=== PATIENT | male | born 1970 | race Caucasian/White ===

== ENCOUNTER 2020-11-22 07:50 | Inpatient (IN) | payer OTHER, SELFPAY ==
[2020-11-22] VITALS (9 sets, daily range): BP systolic 110–145; BP diastolic 62–93; PULSE 78–94; RESP 16–18; TEMP 36.6–37.5; O2SAT 93–100; BMI 25.0
--- NOTE | 2020-11-22 07:53 | W.ED.EXTPRO ---
Documented by User: JONATHAN Aguirre 11/22/20 12:08 HPI - Extremity Problem General: Chief complaint: Extremity Problem,Nontraumatic Stated complaint: PAIN IN LEG Time Seen by Provider: 11/22/20 07:51 Source: patient Mode of arrival: ambulatory Limitations: no limitations History of Present Illness: HPI Narrative: Patient is a nice 50-year-old gentleman here for complaints of right lower extremity/calf redness and swelling that he is concerned could be a DVT. Patient is recently retired from the . He states he is normally very active. He has had no recent surgery. No previous history of DVT/PE. No periods of prolonged inactivity. No known hx of cancer. He tells me approximately week ago he began noticing some burning to his right calf that has progressed into redness, swelling, and worsening pain. Symptoms are worse with walking/ambulation. He is not having any chest pain or shortness of breath. No fevers. MD Complaint: extremity pain and extremity swelling Onset (ago): day(s) Pain Consistency: constant Location: right and lower extremity Quality: burning and aching Radiation: none Relieving factors: immobilization and elevation Exacerbating factors: walking Associated symptoms: Reports no associated symptoms; Deny chest pain, fever(s) or rash Review of Systems Const: Denies: fever(s), chills, body aches, fatigue or malaise Card: Reports: leg pain with exertion (R LE); Denies: chest pain, palpitations, irregular heart rhythm, edema, swelling of feet/ankles, lightheadedness, syncope, pre-syncope, dyspnea on exertion, orthopnea or acrocyanosis Resp: Denies: dyspnea, productive cough, non-productive cough, wheezing, pain on inspiration, hemoptysis or chest congestion GI: Denies: abdominal pain Musc: Reports: extremity pain (R LE) and extremity swelling (R LE); Denies: neck pain, back pain, joint pain or joint swelling Skin/Breast: Denies: rash Neuro: Denies: numbness in extremities, weakness in extremities or sensory changes PFSH ED PFSH: Social History Smoking and tobacco status: former smoker Alcohol intake: current Alcohol intake frequency: 0-2 Drinks per Day Physical Exam Const: COMMON NORMALS: no acute distress, average body habitus, patient oriented x3, no limitations, healthy appearing, alert and well nourished GENERAL APPEARANCE: cooperative ORIENTATION/CONSCIOUSNESS: Yes awake, Yes oriented to person, Yes oriented to place and Yes oriented to time Resp: COMMON NORMALS: normal respiratory effort and clear to auscultation bilaterally AUSCULTATION: clear to auscultation bilaterally Cardio: COMMON NORMALS: regular rate and regular rhythm RATE: regular rate RHYTHM: regular rhythm Extremity: COMMON NORMALS: full ROM, capillary refill normal, no joint enlargement, no clubbing, cyanosis or edema and no pedal edema GENERAL: Yes calf tenderness (right; negative Best's) OTHER: swelling, redness, and tenderness to R calf; no palpable cord; DP/PT pulses intact; sensory normal Neuro: COMMON NORMALS: patient oriented x3, moves all extremities, no focal motor deficits, no sensory deficits noted and gait normal SENSORIUM/ORIENTATION: Yes alert, Yes oriented to person, Yes oriented to place and Yes oriented to time Skin: COMMON NORMALS: no rashes or lesions noted GENERAL SKIN EXAM: no rashes or lesions noted TRAUMA: no lacerations or abrasions Course Vital Signs: Vital signs: Vital Signs Pulse Rate 88 11/22/20 11:56 Respiratory Rate 18 11/22/20 11:56 Blood Pressure 122/91 11/22/20 11:56 Pulse Oximetry 99 11/22/20 11:56 MDM - Extremity (Nontraumatic) MDM Narrative: Medical decision making narrative: Due to extensiveness and proximal location of patient's right lower extremity DVT, decision was made to obtain CTA imaging even though patient did not complain of chest pain or shortness of breath. CTA does show bilateral PEs. He was initially given Lovenox. Heparin ordered after results of CTA and after consulting with Dr. Heaton. His vital signs are stable. At this point Dr. Heaton feels he most likely would benefit from coming inpatient as this patient has no risk factors for embolisms. He will evaluate/assess patient and speak to hospitalist for admission. Lab Data: Labs: Lab Results 11/22/20 11/22/20 11/22/20 Range/Units 08:10 08:10 08:10 WBC 8.0 (4.0-10.0) 10^3/ uL RBC 4.63 (4.1-5.3) 10^6/u L Hgb 14.2 (11.7-16.6) g/dL Hct 41.4 L (42.0-52.0) % MCV 89.4 (80-94) fL MCH 30.7 (28.0-34.0) pg MCHC 34.3 (30.0-36.0) g/dL RDW 12.0 L (12.1-15.1) % Plt Count 174 (130-400) 10^3/c mm MPV 9.6 (7.4-10.4) fL Neut % (Auto) 68.5 % Lymph % (Auto) 15.8 % Tyler % (Auto) 9.8 % Eos % (Auto) 4.4 % Baso % (Auto) 1.1 % Neut # (Auto) 5.47 (1.8-7.7) 10^3/u L Lymph # (Auto) 1.3 (0.8-4.8) 10^3/u L Tyler # (Auto) 0.8 (0.2-0.9) 10^3/u L Eos # (Auto) 0.4 (0.0-0.8) 10^3/u L Baso # (Auto) 0.1 (0.0-0.1) 10^3/u L Nucleated RBC % (a uto) 0 % Nucleated RBCs # 0.0 /100WBC PT 13.20 (12.1-14.9) SECO NDS INR 0.97 (0.8-1.2) APTT 25.5 (23.9-36.7) SECO NDS Sodium 138 (136-145) mmol/L Potassium 4.4 (3.5-5.1) mmol/L Chloride 101 (98-107) mmol/L Carbon Dioxide 25 (22-29) mmol/L Anion Gap 16.4 (5-19) BUN 18 (6-20) mg/dL Creatinine 0.9 (0.7-1.2) mg/dL GFR Calculation 89.7 L (90-130) mL/min Glucose 91 (65-115) mg/dL Calculated Osmolal ity 287 (285-295) mOsm/k g Calcium 8.5 (8.5-10.5) mg/dL Total Bilirubin 0.7 (0.15-1.2) mg/dL AST 23 (0-40) U/L ALT 23 (0-41) U/L Alkaline Phosphata se 63 (40-130) IU/L Total Protein 7.3 (6.6-8.7) g/dL Albumin 4.1 (3.5-5.2) g/dL Globulin 3.2 (1.3-4.6) g/dL Imaging Data^: CTA Chest: Radiologist's impression: [address] [address] [address] Scan Report Signed Patient: Arthur Wu Unit #: [id number] : 1970 Age/Sex: 50 / M ADM Date: 11/22/20 Loc: ER Room/Bed: Attending Dr: Ordering Provider/Ordering MD: Estephania Pierre Date of Service: 11/22/20 Procedure(s): CT angio chest PE protcl [id number] Accession Number(s): [id number] Report Number: [id number] WS: [id number] CTA OF THE CHEST WITH PULMONARY EMBOLISM PROTOCOL TECHNIQUE: High-resolution contrast enhanced CTA of the chest with coronal and sagittal reformatted images with pulmonary embolism protocol. MIP images are also reviewed. CLINICAL INFORMATION: extensive unprovoked/proximal R LE DVT COMPARISON: None. DLP: [address] scans at [facility] use at least one of these dose optimization techniques: automated exposure control; mA and/or kV adjustment per patient size (includes targeted exams where dose is matched to clinical indication); or iterative reconstruction. FINDINGS: Proximal main pulmonary arteries are normal. Numerous filling defects in the segmental and subsegmental pulmonary arteries bilaterally. This is worse in the bilateral lower lobes. Findings compatible with acute pulmonary embolus. Normal caliber thoracic aorta. No mediastinal or hilar lymphadenopathy. No axillary lymphadenopathy. Adrenal glands are normal. Normal GE junction. Hazy groundglass nodule left lower lobe measuring 5 mm. Additional similar-appearing hazy groundglass nodules in the right lower lobe and right upper lobe largest measuring 5 mm. Recommend 3 month follow-up. CT/CT angio chest PE protcl [id number] IMPRESSION: 1. Bilateral filling defects in the proximal segmental pulmonary arteries extending to the subsegmental pulmonary arteries bilaterally worse in the lower lobes compatible with acute pulmonary embolus. 2. Normal caliber thoracic aorta. 3. No acute pulmonary infiltrates. 4. 3 small nonspecific groundglass opacities the largest measuring 5 mm. These are located in the left lower lobe, right upper lobe, and right lower lobe. Recommend 3 month follow-up. 5. No mediastinal or hilar lymphadenopathy. Notified JONATHAN Aguirre at 11/22/2020 9:44 AM. Dictated By: Deniz Matt MD Signed By: Deniz Matt MD Signed Date/Time: 11/22/20951 DD/ 2 US venous R LE: My impression: Per Nika Timeet tech-extensive DVT noted to femoral vein all the way down extremity Discharge Plan Discharge Patient Disposition: Admitted As Inpatient Clinical Impression: Bilateral pulmonary embolism Acute deep vein thrombosis (DVT) of right lower extremity Qualifiers: Affected thrombotic vein of extremity: unspecified vein of extremity Qualified Code(s): I82.401 - Acute embolism and thrombosis of unspecified deep veins of right lower extremity Condition: Stable Coding Level of Care Code ED Firebrick Layer for Chg Fwd Exam Comprehensive Documented by User: Eduardo Heaton DO 11/22/20 11:38 HPI - Extremity Problem General: Chief complaint: Extremity Problem,Nontraumatic Stated complaint: PAIN IN LEG Time Seen by Provider: 11/22/20 07:51 History of Present Illness: HPI Narrative: 50-year-old male initially seen by the PA found to have an extensive DVT as well as significant pulmonary emboli load. He has not no precipitating cause in discussing with him though he mentions that his sisters had several clots throughout the years but he does not know what particular diagnosis she was given. He states he noticed last week after he had been in class for a few hours his leg was uncomfortable and then over the next few days he began to have increasing swelling and pain. MD Complaint: extremity pain and extremity swelling Onset (ago): day(s) Pain Consistency: constant Location: right and lower extremity Quality: aching Radiation: distal Relieving factors: nothing Exacerbating factors: walking, exertion and palpation Associated symptoms: Deny arthralgias, chest pain, fever(s), myalgias, rash or short of breath Review of Systems Const: Denies: fever(s) ENMT: Denies: throat pain, ear or mastoid pain, nasal discharge or nasal congestion Card: Denies: chest pain Resp: Denies: dyspnea, productive cough or non-productive cough GI: Denies: abdominal pain, nausea, vomiting, hematemesis, coffee ground emesis, diarrhea, constipation, bloating, hematochezia or melena : Denies: flank pain, dysuria, urinary frequency or urinary urgency Skin/Breast: Denies: rash PFSH ED PFSH: Social History Smoking and tobacco status: former smoker Alcohol intake: current Alcohol intake frequency: 0-2 Drinks per Day Physical Exam Const: COMMON NORMALS: no acute distress GENERAL APPEARANCE: cooperative and comfortable ORIENTATION/CONSCIOUSNESS: Yes awake, Yes oriented to person, Yes oriented to place and Yes oriented to time HENMT: COMMON NORMALS: normocephalic, atraumatic and hearing grossly normal bilaterally HEAD & SCALP: normocephalic and atraumatic Neck/C-Spine: COMMON NORMALS: no JVD Resp: COMMON NORMALS: normal respiratory effort, No retractions, No use of accessory muscles and clear to auscultation bilaterally AUSCULTATION: clear to auscultation bilaterally Cardio: COMMON NORMALS: no JVD, regular rate, regular rhythm and No murmurs present (Cardio) RATE: regular rate RHYTHM: regular rhythm GI: COMMON NORMALS: Soft to palpation and No hepatosplenomegaly present AUSCULTATION: Yes normoactive bowel sounds PALPATION: Yes Soft to palpation, No Tenderness to palpation present (GI), No Guarding due to palpation present (GI) and Yes No hepatosplenomegaly present Extremity: COMMON NORMALS: normal to inspection, capillary refill normal, no clubbing, cyanosis or edema, no calf tenderness and no pedal edema Neuro: SENSORIUM/ORIENTATION: Yes oriented to person, Yes oriented to place and Yes oriented to time Skin: COMMON NORMALS: no rashes or lesions noted GENERAL SKIN EXAM: no rashes or lesions noted Course Vital Signs: Vital signs: Vital Signs Pulse Rate 88 11/22/20 11:56 Respiratory Rate 18 11/22/20 11:56 Blood Pressure 122/91 11/22/20 11:56 Pulse Oximetry 99 11/22/20 11:56 MDM - Extremity (Nontraumatic) Lab Data: Labs: Lab Results 11/22/20 11/22/20 11/22/20 Range/Units 08:10 08:10 08:10 WBC 8.0 (4.0-10.0) 10^3/ uL RBC 4.63 (4.1-5.3) 10^6/u L Hgb 14.2 (11.7-16.6) g/dL Hct 41.4 L (42.0-52.0) % MCV 89.4 (80-94) fL MCH 30.7 (28.0-34.0) pg MCHC 34.3 (30.0-36.0) g/dL RDW 12.0 L (12.1-15.1) % Plt Count 174 (130-400) 10^3/c mm MPV 9.6 (7.4-10.4) fL Neut % (Auto) 68.5 % Lymph % (Auto) 15.8 % Tyler % (Auto) 9.8 % Eos % (Auto) 4.4 % Baso % (Auto) 1.1 % Neut # (Auto) 5.47 (1.8-7.7) 10^3/u L Lymph # (Auto) 1.3 (0.8-4.8) 10^3/u L Tyler # (Auto) 0.8 (0.2-0.9) 10^3/u L Eos # (Auto) 0.4 (0.0-0.8) 10^3/u L Baso # (Auto) 0.1 (0.0-0.1) 10^3/u L Nucleated RBC % (a uto) 0 % Nucleated RBCs # 0.0 /100WBC PT 13.20 (12.1-14.9) SECO NDS INR 0.97 (0.8-1.2) APTT 25.5 (23.9-36.7) SECO NDS Sodium 138 (136-145) mmol/L Potassium 4.4 (3.5-5.1) mmol/L Chloride 101 (98-107) mmol/L Carbon Dioxide 25 (22-29) mmol/L Anion Gap 16.4 (5-19) BUN 18 (6-20) mg/dL Creatinine 0.9 (0.7-1.2) mg/dL GFR Calculation 89.7 L (90-130) mL/min Glucose 91 (65-115) mg/dL Calculated Osmolal ity 287 (285-295) mOsm/k g Calcium 8.5 (8.5-10.5) mg/dL Total Bilirubin 0.7 (0.15-1.2) mg/dL AST 23 (0-40) U/L ALT 23 (0-41) U/L Alkaline Phosphata se 63 (40-130) IU/L Total Protein 7.3 (6.6-8.7) g/dL Albumin 4.1 (3.5-5.2) g/dL Globulin 3.2 (1.3-4.6) g/dL Discharge Plan Discharge Patient Disposition: Admitted As Inpatient Clinical Impression: Bilateral pulmonary embolism Acute deep vein thrombosis (DVT) of right lower extremity Qualifiers: Affected thrombotic vein of extremity: unspecified vein of extremity Qualified Code(s): I82.401 - Acute embolism and thrombosis of unspecified deep veins of right lower extremity Condition: Stable Coding Level of Care Code ED Firebrick Layer for Severino Fwd Exam Comprehensive
--- NOTE | 2020-11-22 08:01 | USCV_ITS ---
Bryce Arthur Age: 50 Gender: M : 1970 Exam Date: 11/22/2020 08:13 Ordering Phys: Estephania No Technologist: ANA ROSA GARCIA Exam Location: [facility] [place] Indication: TENDER RT CALF HISTORY: Tender calf PROCEDURES: Venous duplex imaging was performed in only the right lower extremity. Left common femoral vein also examined. Serial compression, augmentation maneuvers, and spectral Doppler flow evaluation were performed. The following venous structures were evaluated: common femoral vein, profunda vein, proximal portion of the greater saphenous vein, superficial femoral vein, and the popliteal vein. In addition, in addition, the posterior tibial and peroneal trunk and atv were evaluated. FINDINGS: Rt CFV at prox thru Rt Pop thru Rt. Peroneal and Rt. ATV thru Rt PTV. CONCLUSIONS DVT right common femoral vein extends into popliteal vein. DVT extends into right peroneal , PTV, ATV. ESTEPHANIA NO NOTIFIED WITH PRELIM AT TIME OF EXAM Deniz Matt MD (Electronically Signed) Final Date: 22 Nov 2020 12:25 S
[2020-11-22 08:19] LABS: Basophils # 0.1 10^3/uL (0.0-0.1); Basophils % 1.1 %; Eosinophils # 0.4 10^3/uL (0.0-0.8); Eosinophils % 4.4 %; Hematocrit 41.4 % (42.0-52.0); Hemoglobin 14.2 g/dL (11.7-16.6); Lymphocytes # 1.3 10^3/uL (0.8-4.8); Lymphocytes % 15.8 %; Mean Corpuscular HGB Conc 34.3 g/dL (30.0-36.0); Mean Corpuscular Hemoglobin 30.7 pg (28.0-34.0); Mean Corpuscular Volume 89.4 fL (80-94); Mean Platelet Volume 9.6 fL (7.4-10.4); Monocytes # 0.8 10^3/uL (0.2-0.9); Monocytes % 9.8 %; Neutrophils # 5.47 10^3/uL (1.8-7.7); Neutrophils % 68.5 %; Nucleated Red Blood Cells % 0 %; Platelet Count 174 10^3/cmm (130-400); Red Blood Count 4.63 10^6/uL (4.1-5.3)
[2020-11-22 08:35] LABS: INR 0.97 (0.8-1.2)
[2020-11-22 08:36] LABS: Partial Thromboplastin Time 25.5 SECONDS (23.9-36.7)
[2020-11-22 08:38] LABS: Alanine Aminotransferase 23 U/L (0-41); Albumin Level 4.1 g/dL (3.5-5.2); Alkaline Phosphatase 63 IU/L (40-130); Anion Gap 16.4 (5-19); Aspartate Amino Transferase 23 U/L (0-40); Blood Urea Nitrogen 18 mg/dL (6-20); Calcium 8.5 mg/dL (8.5-10.5); Carbon Dioxide 25 mmol/L (22-29); Chloride 101 mmol/L (98-107); Globulin 3.2 g/dL (1.3-4.6); Glomerular Filtration Rate 89.7 mL/min (90-130); Glucose 91 mg/dL (65-115); Osmolality Calculated 287 mOsm/kg (285-295); Potassium 4.4 mmol/L (3.5-5.1); Sodium 138 mmol/L (136-145); Total Bilirubin 0.7 mg/dL (0.15-1.2); Total Protein 7.3 g/dL (6.6-8.7)
--- NOTE | 2020-11-22 08:42 | CT_ITS ---
WS: [id number] CTA OF THE CHEST WITH PULMONARY EMBOLISM PROTOCOL TECHNIQUE: High-resolution contrast enhanced CTA of the chest with coronal and sagittal reformatted i mages with pulmonary embolism protocol. MIP images are also reviewed. CLINICAL INFORMATION: extensive unprovoked/proximal R LE DVT COMPARISON: None. DLP: [address] scans at [facility] use at least one of these dose optimization techniques: automat ed exposure control; mA and/or kV adjustment per patient size (includes targeted exams where dose is matched to clinical indication); or iterative reconstruction. FINDINGS: Proximal main pulmonary arteries are normal. Numerous filling defects in the segmental and subsegment al pulmonary arteries bilaterally. This is worse in the bilateral lower lobes. Findings compatible wi th acute pulmonary embolus. Normal caliber thoracic aorta. No mediastinal or hilar lymphadenopathy. No axillary lymphadenopathy. Adrenal glands are normal. Normal GE junction. Hazy groundglass nodule left lower lobe measuring 5 mm . Additional similar-appearing hazy groundglass nodules in the right lower lobe and right upper lobe largest measuring 5 mm. Recommend 3 month follow-up. CT/CT angio chest PE protcl [id number] IMPRESSION: 1. Bilateral filling defects in the proximal segmental pulmonary arteries exte nding to the subsegmental pulmonary arteries bilaterally worse in the lower lob es compatible with acute pulmonary embolus. 2. Normal caliber thoracic aorta. 3. No acute pulmonary infiltrates. 4. 3 small nonspecific groundglass opacities the largest measuring 5 mm. These are located in the left lower lobe, right upper lobe, and right lower lobe. Re commend 3 month follow-up. 5. No mediastinal or hilar lymphadenopathy. Notified JONATHAN Aguirre at 11/22/2020 9:44 AM.
[2020-11-22] MEDS: iohexol 350 mg/mL 100 mL Btl IV (08:59)
[2020-11-22] MEDS: enoxaparin 80 mg/0.8 mL Syringe SUBCUT ×2 (09:21→22:25)
[2020-11-22] MEDS: heparin 5,000 unit/mL INJ 1 mL 4000 UNIT IVP (10:03)
--- NOTE | 2020-11-22 11:01 | PM.HP ---
Providers/Chief Complaint Chief Complaint: PAIN IN LEG History of Present Illness Arthur Wu is a 50 year old male who presents from home with history of right calf swelling and pain for the last week. He reports it has been more severe in the last several days. Occasional cough but no shortness of breath, chest discomfort, or hemoptysis. No history of documented Covid but he reports he may have had a year ago. He denies ever having a blood clot before. 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 He reports his sister has a family history of multiple clots. He denies any contraindications to anticoagulation. He received 80 mg of Lovenox in the emergency department. Review of Systems General: Reports: 10 or more systems reviewed and unremarkable except in HPI and below Const: Denies: fever(s) or chills Eyes: Denies: change in vision ENMT: Denies: throat pain Card: Denies: chest pain Resp: Denies: dyspnea, productive cough or hemoptysis GI: Denies: abdominal pain, nausea, vomiting, heartburn, hematochezia or melena : Denies: flank pain Musc: Reports: extremity pain; Denies: neck pain or back pain Skin/Breast: Denies: rash Neuro: Denies: headache(s) Psych: Denies: anxiety Endo: Denies: polyuria Moise/Lymph: Denies: easy bruising All/Imm: Denies: urticaria Medications/Allergies Home Medications Medication Instructions Recorded Confirmed Last Taken Type loratadine [Claritin] 10 mg PO DAILY 11/22/20 11/22/20 11/21/20 History multivitamin 1 tab PO DAILY 11/22/20 11/22/20 11/21/20 History Allergies Allergy/AdvReac Type Severity Reaction Status Date / Time aspirin Allergy Unknown Verified 11/22/20 08:03 PFSH Acute PFSH: Social History (Updated 11/22/20 @ 11:34 by Pedro Woodward MD) Smoking and tobacco status: former smoker Alcohol intake: current Alcohol intake frequency: 0-2 Drinks per Day Supplemental PFSH Information: Family history significant for multiple DVTs in sibling. Particular diagnosis not known. Vitals/I&O/Wt Last Vital Signs Pulse 88 11/22/20 07:52 Resp 16 11/22/20 07:52 BP 144/93 11/22/20 08:10 Pulse Ox 100 11/22/20 08:10 Weight last 48 hrs Weight 83.915 kg Physical Exam Narrative: EXAM NARRATIVE: General exam is a conversant white male in no apparent distress HEENT: Pupils equally round. Oropharynx is clear. Neck is supple no lymphadenopathy or thyromegaly Cardiovascular regular rate and rhythm without murmur, no S3 or S4 Lungs are clear no wheezing or crackles Abdomen is soft with positive bowel sounds. No obvious organomegaly was deferred Extremities no cyanosis clubbing. Edema is present in the right calf, and foot. Distal pulses are intact. Skin no rash Neuro no obvious focal deficits. Data : 11/22/20 08:10 11/22/20 08:10 Other data: INR 0.97, PTT 25 LFTs are within normal limits, including albumin CTA of the chest demonstrates bilateral filling defects in the proximal segmental pulmonary arteries and extending to subsegmental bilaterally worse in the lower lobes. Nonspecific groundglass opacities measuring 5 mm are located in the left lower lobe right upper lobe and right lower lobe for which 3-month follow-up is recommended. A venous duplex of his right lower extremity I am told shows a DVT although I do not have the report. A&P Assessment and plan (1) Bilateral pulmonary embolism: Currently patient without symptoms of shortness of breath. Saturation is normal and he is not tachycardic. Admission to the second floor. His burden of pulmonary emboli is large. He has received an appropriate dose of Lovenox and will continue this every 12 hours. Check baseline EKG Placed on telemetry Echocardiogram to check for right ventricular strain Discussed with him risks and benefits of its of anticoagulation Several coagulation studies were done in the emergency department that will be pending. Patient will try to contact sister to see if she knows her diagnosis regarding because of her multiple DVTs. Plan to transition to Eliquis if no complications. I suspect this will occur on November 24. I intend to continue Lovenox until that time secondary to large burden of pulmonary emboli and extensive DVT. This could be extended if right heart strain is noted. Status: Acute (2) Acute deep vein thrombosis (DVT) of right lower extremity: See above Status: Acute Qualifiers: Affected thrombotic vein of extremity: unspecified vein of extremity Qualified Code(s): I82.401 - Acute embolism and thrombosis of unspecified deep veins of right lower extremity Additional A&P Information Full code Lovenox will be used for DVT/pulmonary embolism Attestations Medical Necessity Statement*: Will need greater than 2 midnight stay for treatment of extensive pulmonary emboli and DVT Coding Level of Care Code Acute Director Of It Operations for Chg Fwd Diagnoses Bilateral pulmonary embolism I26.99 Acute deep vein thrombosis (DVT) of right lower extremity I82.401 Affected thrombotic vein of extremity: unspecified vein of extremity
--- NOTE | 2020-11-22 11:02 | USCV_ITS ---
Arthur Wu Age: 50 Gender: M : 1970 Exam Date: 11/22/2020 11:33 Ordering Phys: Pedro Woodward MD Technologist: Ashleigh Medrano Exam Location: [facility] [place] Indication: PULM EMB BP: 129 / 86 HR: 82 Rhythm: Sinus Technical Quality: Good MEASUREMENTS (Male / Female) Normal Values 2D ECHO LV Diastolic Diameter PLAX 3.5 cm 4.2 - 5.9 / 3.9 - 5.3 cm LV Systolic Diameter PLAX 1.9 cm LV Chamber Size 4.7 cm IVS Diastolic Thickness 0.8 cm 0.6 - 1.0 / 0.6 - 0.9 cm IVS Systolic Thickness 1.3 cm LVPW Diastolic Thickness 0.9 cm 0.6 - 1.0 / 0.6 - 0.9 cm LVPW Systolic Thickness 1.3 cm RV Chamber Size 3.1 cm LVOT Diameter 2.0 cm LV Ejection Fraction 2D Teich 77.7 % LV Ejection Fraction MOD 2C 66.9 % LV Ejection Fraction 2C AL 70.9 % LA Diameter 2.8 cm LA Width 3.1 cm LA Height 3.6 cm RA Width 2.7 cm RA Height 4.1 cm M-MODE LV Diastolic Diameter MM 5.2 cm 4.2 - 5.9 / 3.9 - 5.3 cm LV Systolic Diameter MM 3.5 cm LV Ejection Fraction MM Teich 61.0 % IVS Diastolic Thickness MM 0.6 cm 0.6 - 1.0 / 0.6 - 0.9 cm IVS Systolic Thickness MM 1.2 cm LVPW Diastolic Thickness MM 0.8 cm 0.6 - 1.0 / 0.6 - 0.9 cm LVPW Systolic Thickness MM 0.9 cm RV Diastolic Diameter MM 2.6 cm Aortic Annulus Diameter 3.0 cm LA Ao Ratio MM 0.9 MV E Point Septal Separation 0.2 cm DOPPLER AV Peak Velocity 127.0 cm/s LVOT Peak Velocity 103.0 cm/s AV Area Cont Eq vti 2.7 cm squared AV Area Cont Eq pk 2.5 cm squared MV Area PHT 3.9 cm squared Mitral E to A Ratio 0.8 MV E' Velocity 33.5 cm/s Mitral E to MV E' Ratio 7.0 Mitral E to LV E' Lateral Ratio 6.7 Mitral E to LV E' Septal Ratio 7.3 TR Peak Velocity 204.2 cm/s TR Peak Gradient 16.7 mmHg TR Mean Velocity 162.8 cm/s TR Mean Gradient 11.8 mmHg TR Velocity Time Integral 50.9 cm TV Peak E Velocity 70.0 cm/s Right Atrial Pressure 3.0 mmHg Pulmonary Artery Systolic Pressu 19.7 mmHg PV Peak Velocity 123.0 cm/s FINDINGS Left Ventricle Normal left ventricular size and systolic function, EF 63 %. No regional wall motion abnormalities. Right Ventricle The right ventricle is normal in size and function. Right Atrium The right atrium is normal in size. Left Atrium The left atrium is normal in size. Mitral Valve No Gross abnormalities noted. Aortic Valve No gross abnormalities noted Tricuspid Valve Mild tricuspid valve regurgitation. Pulmonic Valve Pulmonic valve not well visualized. Pericardium Normal pericardium without effusion. Aorta Normal ascending aorta dimension. CONCLUSIONS Normal left ventricular size and systolic function, EF 63 %. No regional wall motion abnormalities. Mild tricuspid valve regurgitation. Normal cardiac chamber sizes. Normal pulmonary artery peak systolic pressure There is no pericardial effusion. There are no intracardiac masses. No previous study is available for comparison. Dr Jozef Mclain MD FACC (Electronically Signed) Final Date: 23 Nov 2020 00:58 S
--- NOTE | 2020-11-22 12:45 | ECG_ITS ---
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 Measurements Intervals Mcdonough Rate: 95 P: 60 HI: 155 QRS: 66 QRSD: 101 T: 30 QT: 342 QTc: 430 Interpretive Statements SINUS RHYTHM No previous ECG available for comparison Electronically Signed On 11-23-2020 7:02:25 CDT by Oriana Owens M.D. [id number]
[2020-11-22 14:52] LABS: Protein Urine Neg (Negative); Urine Appearance Clear (CLEAR); Urine Color Yellow (Yellow); pH Urine 5 (5-7)
[2020-11-22 14:53] LABS: Bilirubin Urine Neg (Negative); Blood Urine Neg (Negative); Glucose Urine UA Norm (Normal); Ketones Urine 2+ (Negative); Leukocyte Esterase Urine Negative (Negative); Nitrate Urine Negative (Negative); Urobilinogen Urine Norm (Negative)
[2020-11-22 15:35] LABS: Add Urine Culture? No; Bacteria Urine TRACE /hpf
[2020-11-23] VITALS (7 sets, daily range): BP systolic 112–127; BP diastolic 70–85; PULSE 65–86; RESP 18–20; TEMP 36.6–37.1; O2SAT 96–99
[2020-11-23 05:15] LABS: Basophils # 0.1 10^3/uL (0.0-0.1); Basophils % 1.3 %; Eosinophils # 0.4 10^3/uL (0.0-0.8); Eosinophils % 6.6 %; Hematocrit 42.7 % (42.0-52.0); Hemoglobin 14.5 g/dL (11.7-16.6); Lymphocytes # 1.7 10^3/uL (0.8-4.8); Lymphocytes % 24.9 %; Mean Corpuscular Hemoglobin 30.4 pg (28.0-34.0); Mean Corpuscular Volume 89.5 fL (80-94); Mean Platelet Volume 9.9 fL (7.4-10.4); Monocytes # 0.7 10^3/uL (0.2-0.9); Monocytes % 10.8 %; Neutrophils # 3.74 10^3/uL (1.8-7.7); Nucleated Red Blood Cells % 0 %; Platelet Count 204 10^3/cmm (130-400); Red Blood Count 4.77 10^6/uL (4.1-5.3); Red Cell Distribution Width 11.9 % (12.1-15.1); White Blood Count 6.7 10^3/uL (4.0-10.0)
[2020-11-23 05:43] LABS: Alanine Aminotransferase 18 U/L (0-41); Albumin Level 3.6 g/dL (3.5-5.2); Alkaline Phosphatase 59 IU/L (40-130); Aspartate Amino Transferase 19 U/L (0-40); Blood Urea Nitrogen 14 mg/dL (6-20); Calcium 8.4 mg/dL (8.5-10.5); Carbon Dioxide 25 mmol/L (22-29); Chloride 104 mmol/L (98-107); Globulin 3.1 g/dL (1.3-4.6); Glomerular Filtration Rate 89.7 mL/min (90-130); Glucose 102 mg/dL (65-115); Osmolality Calculated 289 mOsm/kg (285-295); Sodium 139 mmol/L (136-145); Total Bilirubin 0.3 mg/dL (0.15-1.2); Total Protein 6.7 g/dL (6.6-8.7)
[2020-11-23 05:58] LABS: Anion Gap 14.3 (5-19); Potassium 4.3 mmol/L (3.5-5.1)
--- NOTE | 2020-11-23 08:28 | PM.PN ---
Subjective Subjective: Interval history: Arthur reports he feels okay. Not short of breath. No hemoptysis. Denies any chest discomfort. Medications: Reviewed: Yes Vitals/I&O/Wt Last Vital Signs Temp 98.0 F 11/23/20 07:59 Pulse 71 11/23/20 07:59 Resp 18 11/23/20 07:59 BP 125/85 11/23/20 07:59 Pulse Ox 99 11/23/20 07:59 11/22/20 11/23/20 11/23/20 22:59 06:59 14:59 Intake Total 600 / 600 1600 / 2200 Output Total 750 / 750 Balance -150 / -150 1600 / 1450 Weight last 48 hrs Weight 83.915 kg Physical Exam Narrative: EXAM NARRATIVE: General exam is a conversant white male in no apparent distress. Telemetry without arrhythmia Neck is supple no lymphadenopathy or thyromegaly Cardiovascular regular rate and rhythm without murmur, no S3 or S4 Lungs are clear no wheezing or crackles Abdomen is soft with positive bowel sounds. No obvious organomegaly Extremities no cyanosis clubbing. Edema is present in the right calf, and foot. This appears improved since yesterday November 22 Data : 11/23/20 04:40 11/23/20 04:40 A&P Assessment and plan (1) Bilateral pulmonary embolism: Currently patient without symptoms of shortness of breath. Saturation is normal and he is not tachycardic although I suspect he had some relative tachycardia yesterday. Considering his level of physical activity prior to pulmonary emboli, a heart rate resting in the upper 80s and 90s as it was yesterday would not have been typical. His burden of pulmonary emboli is large. He has received an appropriate dose of Lovenox and will continue this every 12 hours. Baseline EKG demonstrated sinus rhythm, normal axis, no significant ST or T wave changes. Echocardiogram demonstrated normal EF without pulmonary hypertension or evidence of right heart strain Discussed with him risks and benefits of its of anticoagulation Several coagulation studies were done in the emergency department that will be pending. Patient will try to contact sister to see if she knows her diagnosis regarding because of her multiple DVTs. Plan to transition to Eliquis if no complications. This is planned on November 24 in the morning. I intend to continue Lovenox until that time secondary to large burden of pulmonary emboli and extensive DVT right lower extremity. If no events by November 24, plan on discharging home on oral anticoagulation. Status: Acute (2) Acute deep vein thrombosis (DVT) of right lower extremity: See above Status: Acute Qualifiers: Affected thrombotic vein of extremity: unspecified vein of extremity Qualified Code(s): I82.401 - Acute embolism and thrombosis of unspecified deep veins of right lower extremity Additional A&P Information Full code Lovenox will be used for DVT/pulmonary embolism Attestations Medical Necessity Statement*: Needs continued close monitoring secondary to multiple moderate to severe pulmonary emboli burden, and associated extensive right lower extremity DVT Coding Level of Care Code Acute Armor Reconnaissance Specialist for Chg Fwd Diagnoses Bilateral pulmonary embolism I26.99 Acute deep vein thrombosis (DVT) of right lower extremity I82.401 Affected thrombotic vein of extremity: unspecified vein of extremity
[2020-11-23] MEDS: multivitamin therapeutic Tablet 1 TAB PO (09:50)
[2020-11-23] MEDS: enoxaparin 80 mg/0.8 mL Syringe SUBCUT ×2 (09:50→21:21)
--- NOTE | 2020-11-23 10:45 | PC.CHAP ---
Pastoral Care Encounter/Spiritual Assessment Type of Contact [] Declined landing signal officer visit [] Patient/Family/Request visit [] Outpatient visit [] Follow-up visit [] Physician referral [] Code/Alert [X] Routine visit [] Staff referral [] Actively dying [] Patient sleeping [] Family support [] [] Out of room [] Palliative care [] [] Receiving care in room [] Pre-surgical visit [] Trauma [] Long length of stay [] ICU visit [] Other: Relational/Emotional Strength [] Patient feels connected with others/family/visitors/staff [] Distress [] Loneliness/isolation [] Abandonment Spirituality of Patient [] Person of Claudia [] Attends Latter Day of their Claudia [] Believes in Prayer [] Reads Bible or Taoist materials [] There are Spiritual issues to be addressed Executive Marketing Assistant Interventions [] Prayer [] Active listening [] Non-anxious presence [] Spiritual/emotional support [] Crisis/trauma care [] Spiritual counseling [] Bereavement support [] Provided bereavement packet [] Provided Bible/devotional materials [] Provided toy/stuffed animal, coloring book to patient or family member [] Provided Communion [] Anointing/Bourbon [] Salvation [] Completed spiritual assessment [] Other: Impact on Illness or Injury [] Angry [] Fearful [] Anxious [] Often cries [] Exhaustion [] Unable to work [] Unable to attend hinduism [] Unable to walk/stand [] Unable to read [] Unable to drive [] Unable to eat/drink [] Unable to sleep [] Unable to be with family [] Patient intubated [] Other: Summary PATGIENT REFUSED PRAYER Time spent with patient
[2020-11-24] VITALS: BP 114/74; PULSE 81; RESP 20; TEMP 36.3; O2SAT 97
[2020-11-24 04:00] VITALS: BP 128/65; PULSE 75; RESP 18; TEMP 36.6; O2SAT 98
[2020-11-24 06:00] VITALS: PULSE 65
[2020-11-24 06:34] LABS: Basophils # 0.1 10^3/uL (0.0-0.1); Basophils % 1.3 %; Eosinophils # 0.5 10^3/uL (0.0-0.8); Eosinophils % 7.1 %; Hematocrit 42.3 % (42.0-52.0); Hemoglobin 14.4 g/dL (11.7-16.6); Lymphocytes # 1.7 10^3/uL (0.8-4.8); Mean Corpuscular Hemoglobin 31.2 pg (28.0-34.0); Mean Corpuscular Volume 91.6 fL (80-94); Mean Platelet Volume 9.9 fL (7.4-10.4); Monocytes # 0.7 10^3/uL (0.2-0.9); Monocytes % 10.4 %; Neutrophils % 53.7 %; Nucleated Red Blood Cells % 0 %; Platelet Count 204 10^3/cmm (130-400); Red Blood Count 4.62 10^6/uL (4.1-5.3); White Blood Count 6.3 10^3/uL (4.0-10.0)
[2020-11-24 08:00] VITALS: BP 134/78; PULSE 84; RESP 16; TEMP 37.1; O2SAT 98
[2020-11-24] MEDS: apixaban 5 mg Tablet 10 MG PO (08:12)
[2020-11-24] MEDS: multivitamin therapeutic Tablet 1 TAB PO (08:12)
--- NOTE | 2020-11-24 08:14 | PM.DCS ---
Discharge Providers Date of Admission: 11/22/20 10:58 Date of Discharge: November 24, 2020 Attending Provider at Admission: Pedro Woodward MD Attending Provider at Discharge: Pedro Woodward MD Diagnoses at Discharge Discharge Diagnosis (1) Bilateral pulmonary embolism: Status: Acute (2) Acute deep vein thrombosis (DVT) of right lower extremity: Status: Acute Qualifiers: Affected thrombotic vein of extremity: unspecified vein of extremity Qualified Code(s): I82.401 - Acute embolism and thrombosis of unspecified deep veins of right lower extremity Reason for Visit Reason for Visit: PAIN IN LEG Hospital Course Hospital Course Arthur is a 50-year-old white male who presented to the hospital with a swollen right calf. He was found to have an extensive DVT, and multiple bilateral pulmonary emboli. He did not have chest pain or shortness of breath, and was not hypoxic. He had a complaint several weeks earlier of occasional cough. He was placed on Lovenox and monitored closely secondary to the extensive burden. Echocardiogram was performed which demonstrated no right heart strain. He was noted to have relative tachycardia on admission with a heart rate in the 90s, somewhat atypical for him. By the end of the hospital stay heart rate was mid 70s to low 80s. He was able to ambulate without significant difficulty other than some discomfort in his right calf. I discussed with him routine cancer screening follow-up with his primary care provider, as well as his CT scan which demonstrated 3 small nonspecific groundglass opacities in the left lower lobe, right upper lobe and right lower lobe for which radiology recommended a 3-month follow-up. Risks and benefits of anticoagulation were discussed with him and he will continue Eliquis 10 mg twice daily for 1 week and then 5 mg twice daily. Thrombotic work-up and factor measurement occurred at the hospital but was pending at time of discharge. Physical Exam Narrative: EXAM NARRATIVE: General exam no apparent distress Cardiovascular regular rate and rhythm without murmur Lungs clear Abdomen is soft with positive bowel sounds Extremities no cyanosis clubbing or edema Discharge Data Data Completed and Pending: Completed Studies During Hospitalization Category Date Time Status CT angio chest PE protcl [id number] Urge nt Cat Scan 11/22/20 08:42 Completed CV echo complete* [id number] Routine Ultrasound 11/22/20 11:02 [place] [id number] Urgent Ultrasound 11/22/20 08:01 Completed Pending at discharge Category Date Time Status Factor 5 Krystian M utation Stat Lab 11/22/20 09:41 Received PROTEIN C, ACTIVI TY Stat Lab 11/22/20 09:41 Received PROTEIN S, ACTIVI TY Stat Lab 11/22/20 09:41 Received Labs from last 24 hours 11/24/20 05:42 WBC 6.3 RBC 4.62 Hgb 14.4 Hct 42.3 MCV 91.6 MCH 31.2 MCHC 34.0 RDW 12.0 L Plt Count 204 MPV 9.9 Neut % (Auto) 53.7 Lymph % (Auto) 27.0 [place] % (Auto) 10.4 Eos % (Auto) 7.1 Baso % (Auto) 1.3 Neut # (Auto) 3.40 Lymph # (Auto) 1.7 [place] # (Auto) 0.7 Eos # (Auto) 0.5 Baso # (Auto) 0.1 Nucleated RBC % (a uto) 0 Nucleated RBCs # 0.0 Vitals: Last Vital Signs Temp 98.7 F 11/24/20 08:00 Pulse 84 11/24/20 08:00 Resp 16 11/24/20 08:00 BP 134/78 11/24/20 08:00 Pulse Ox 98 11/24/20 08:00 Discharge Plan Discharge Patient Disposition: Home Condition: Stable Prescriptions: New Eliquis DVT-PE Treat 30D Start 5 mg (74 tabs) tablets,dose pack See Rx Instructions .ROUTE .COMPLEX Qty: 74 RF: 0 Continued multivitamin Tablet 1 tab PO DAILY RF: 0 Claritin 10 mg Tablet 10 mg PO DAILY RF: 0 Discharge Orders: Discharge Order (Routine); Ordered 11/24/20 Ordered By: Pedro Woodward Referrals: Prudencio Contreras [Referring] - 4-7 days Discharge Diet: Regular Discharge Activity: Increase activity as tolerated Patient Instructions: Opioid Safety Activity Restrictions/Additional Instructions: May discharge after his first dose of Eliquis Follow-up with primary care provider Monitor for any evidence of GI bleeding which was discussed with the patient Consider repeat CT scan chest 3 months Consider routine cancer screenings such as colonoscopy. Discharge Attestations Time Spent in Discharge Care*: greater than 30 min Quality Metrics Clinical Quality Measures During this hospital stay, did patient experience: VTE Contraindication to Overlap Therapy: Overlap treatment not indicated VTE Discharge Education: Education about anticoagulant therapy/Care Notes given Deep Vein Thrombosis/Pulmonary Embolism Present on Admission: Yes Contraindication to Pharm VTE Prophylaxis: VTE prophylaxis given Coding Level of Care Code Acute Chg FW DC note Diagnoses Bilateral pulmonary embolism I26.99 Acute deep vein thrombosis (DVT) of right lower extremity I82.401 Affected thrombotic vein of extremity: unspecified vein of extremity
[2020-11-24 08:26] VITALS: BP 134/78; PULSE 84; RESP 16; TEMP 37.1; O2SAT 98
[2020-11-25 02:33] LABS: PROTEIN C, ACTIVITY 82 % (70-180)
[2020-11-26 01:49] LABS: PROTEIN S, ACTIVITY 111 % normal (70-150)
== END 2020-11-24 10:25 | disposition home or self-care (01) | DRG 299 ==
LOC: ER 11:53 → MEDSURG 12:22
PROVIDERS: Physician Assistant; Admitting Provider Internal Medicine; Emergency Provider Family Medicine; Visit Provider Internal Medicine
DX: I82.411 Acute embolism and thrombosis of right femoral vein (principal); I26.99 Other pulmonary embolism without acute cor pulmonale; I82.431 Acute embolism and thrombosis of right popliteal vein; I82.451 Acute embolism and thrombosis of right peroneal vein; Z87.891 Personal history of nicotine dependence
CPT/HCPCS: 36415; 71275; 80053; 81001; 81241; 85025; 85303; 85306; 85610; 85730; 93005; 93306; 93971; 96365; 96372; 96375; 99285; J1644; J1650; Q9967